=== PATIENT | male | born 1975 | race Caucasian/White ===

== ENCOUNTER 2017-06-15 20:43 | Emergency (ER) | payer BC, OTHER ==
[2017-06-15 20:50] VITALS: BP 150/105; PULSE 86; TEMP 98.5; BMI 35.2
--- NOTE | 2017-06-15 20:52 | PDOC ---
History of Present Illness - General History Source: Patient Exam Limitations: No Limitations (for removal) - History of Present Illness Initial Comments: 06/15/17 21:07 A portion of this note was documented by scribe services under my direction. I have reviewed the details of the note, within reason, and agree with the documentation. The case summary and management plan written by me. Assessment and plan: This is a 41-year-old male with a very superficial puncture wound to the plantar surface of his right foot, patient will be started on Keflex as he is ALLERGIC to fluoroscopy quinolones. However patient was told that the antibiotic may not cover all the organisms and if he develops any increased redness or pain in the area he should return to ER immediately or see his primary care doctor. <Myriam Negrete I - Last Filed: 06/15/17 21:07> - General History Source: Patient Exam Limitations: No Limitations - History of Present Illness Initial Comments: 06/15/17 21:10 The patient is a 41 year old male with no pertinent past medical history who presents to the ED after stepping on a nail that went through his shoe. The patient denies any pain to the area, any itchiness, bleeding, redness, or swelling. Denies any fevers or chills. He reports being unsure of when his last tetanus vaccine was. PAST MEDICAL HISTORY: no significant history PAST SURGICAL HISTORY: no significant history FAMILY HISTORY: no pertinent history SOCIAL HISTORY: Pt lives with family and is employed. MEDICATIONS: reviewed ALLERGIES: As per nursing notes General: No fevers or chills, no weakness, no weight loss HEENT: No change in vision. No sore throat,. No ear pain CardioVascular: No chest pain or shortness of breath Respiratory:No cough, or wheezing. Gastrointestinal: no nausea, vomiting, diarrhea or constipation, No rectal bleeding Genitourinary: No dysuria, hematuria, or frequency Musculoskeletal: No joint or muscle pain or swelling Neurologic: No headache, vertigo, dizziness or loss of consciousness Psychiatric: nor depression Skin: Present: cut on sole of foot Endocrine: no increased thirst or abnormal weight change Allergic: no skin or latex allergy All other systems reviewed and normal GENERAL: The patient is awake, alert, and fully oriented, in no acute distress. HEAD: Normal with no signs of trauma. EYES: Pupils equal, round and reactive to light, extraocular movements intact, sclera anicteric, conjunctiva clear. EXTREMITIES: Normal range of motion, no edema. NEUROLOGICAL: Normal speech, normal gait. PSYCH: Normal mood, normal affect. SKIN: small red area that appears to be superficial Puncture wound no bleeding, no penetration below the dermis Warm, Dry, normal turgor, no rashes. <virginiaYari slaas - Last Filed: 06/15/17 21:11> - General Chief Complaint: Injury Stated Complaint: STEPPED ON NAIL Time Seen by Provider: 06/15/17 20:50 Past History - Past Medical History Anemia: No Asthma: No Cancer: No Cardiac Disorders: No CVA: No COPD: No CHF: No Dementia: No Diabetes: No GI Disorders: Yes (RECTAL BLEEDING, ANAL FISSURE) Disorders: No HTN: Yes Hypercholesterolemia: Yes Liver Disease: No Seizures: No Thyroid Disease: No - Surgical History Abdominal Surgery: Yes (HEMORRHOID BANDING) Appendectomy: No Cardiac Surgery: No Cholecystectomy: Yes Lung Surgery: No Neurologic Surgery: No Orthopedic Surgery: No - Immunization History Immunization Up to Date: Yes - Suicide/Smoking/Psychosocial Hx Smoking Status: No Smoking History: Never smoked Have you smoked in the past 12 months: No Number of Cigarettes Smoked Daily: 0 If you are a former smoker, when did you quit?: 2002 Cigars Per Day: 0 Hx Alcohol Use: Yes (SOCIAL) Drug/Substance Use Hx: No Substance Use Type: None <Myriam Negrete I - Last Filed: 06/15/17 21:07> <[email or web address] - Last Filed: 06/15/17 21:11> - Past Medical History Allergies/Adverse Reactions: Allergies Allergy/AdvReac Type Severity Reaction Status Date / Time levofloxacin [From Levaquin] Allergy Mild aches Verified 10/31/15 19:54 Home Medications: Ambulatory Orders Duloxetine HCl [Cymbalta] 80 mg PO DAILY 10/31/15 Cephalexin [Keflex] 500 mg PO QID #28 capsule 06/15/17 *Physical Exam - Vital Signs Last Vital Signs Temp Pulse Resp BP Pulse Ox 98.5 F 86 16 150/105 98 06/15/17 20:47 06/15/17 20:47 06/15/17 20:47 06/15/17 20:47 06/15/17 20:47 <Myriam Negrete I - Last Filed: 06/15/17 21:07> - Vital Signs Last Vital Signs Temp Pulse Resp BP Pulse Ox 98.5 F 86 16 150/105 98 06/15/17 20:47 06/15/17 20:47 06/15/17 20:47 06/15/17 20:47 06/15/17 20:47 <Yari Rebolledo - Last Filed: 06/15/17 21:11> ED Treatment Course - Medications Given in the ED: ED Medications Discontinued Medications Generic Name Dose Route Start Last Admin Trade Name Erin PRN Reason Stop Dose Admin Cephalexin HCl 500 mg 06/15/17 21:05 06/15/17 21:07 Keflex - PO 06/15/17 21:06 500 mg ONCE ONE Administration <Yari Rebolledo - Last Filed: 06/15/17 21:11> *DC/Admit/Observation/Transfer - Discharge Dispostion Admit: No <Myriam Negrete I - Last Filed: 06/15/17 21:07> - Attestations Scribe Attestion: 06/15/17 21:11 Documentation prepared by Yari Rebolledo, acting as medical registrar for Myriam Negrete MD. <Yari Rebolledo - Last Filed: 06/15/17 21:11> Diagnosis at time of Disposition: Puncture wound of foot Qualifiers: Encounter type: initial encounter Laterality: right Qualified Code(s): S91.331A - Puncture wound without foreign body, right foot, initial encounter - Discharge Dispostion Disposition: HOME Condition at time of disposition: Stable - Prescriptions Prescriptions: Cephalexin [Keflex] 500 mg PO QID #28 capsule - Referrals Referrals: Yolis Haider [Primary Care Provider] - - Patient Instructions Additional Instructions: Take Keflex one tablet 4 times a day for 7 days to prevent infection. Review find that you start getting increased pain or redness return to the ER see her primary care doctor. Return to the emergency department immediately with ANY new, persistent or worsening symptoms. Continue any medications as previously prescribed by your physician. You should follow up with your primary doctor as soon as possible regarding today's emergency department visit. . Please make sure your doctor reviews the results of your emergency evaluation. Thank you for coming to the Emergency Department today for your care. It was a pleasure to see you today. Please note that your evaluation is INCOMPLETE until you follow-up with your doctor. - Post Discharge Activity
[2017-06-15] MEDS ORDERED: CEPHALEXIN MONOHYDRATE 500 MG CAPSULE (UD) PO ONE (21:05)
[2017-06-15] MEDS ORDERED: CEPHALEXIN MONOHYDRATE 500 MG CAPSULE (UD) ONE (21:07)
[2017-06-15] MEDS ORDERED: DIPHTH,PERTUSS(ACELL),TET 0.5 ML DISP.SYRIN IM ONE (21:10)
== END 2017-06-15 21:19 | disposition home or self-care (01) ==
LOC: FER 20:43
PROC: 3E0234Z Introduction of Serum, Toxoid and Vaccine into Muscle, Percutaneous Approach (ICD-10-PCS; principal; 2017-06-15)
DX: S91.331A Puncture wound without foreign body, right foot, initial encounter (principal); W22.8XXA Striking against or struck by other objects, initial encounter; Y93.89 Activity, other specified; Y92.9 Unspecified place or not applicable; Z87.891 Personal history of nicotine dependence; E78.00 Pure hypercholesterolemia, unspecified; I10 Essential (primary) hypertension
CPT/HCPCS: 90715; 99281-25

== ENCOUNTER 2017-08-02 18:16 | Emergency (ER) | payer BC, OTHER ==
[2017-08-02 18:49] VITALS: BP 135/79; PULSE 103; TEMP 99; BMI 35.2
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
== END 2017-08-02 19:37 | disposition home or self-care (01) ==
LOC: JERFT 18:16
DX: Z77.21 Contact with and (suspected) exposure to potentially hazardous body fluids (principal); X58.XXXA Exposure to other specified factors, initial encounter; Y93.89 Activity, other specified; Y92.9 Unspecified place or not applicable; Y99.0 Civilian activity done for income or pay; Z87.891 Personal history of nicotine dependence; I10 Essential (primary) hypertension; E78.00 Pure hypercholesterolemia, unspecified
CPT/HCPCS: 99281-25

== ENCOUNTER 2021-04-03 10:31 | Emergency (ER) | payer BC, OTHER ==
[2021-04-03 10:49] VITALS: BP 152/96; PULSE 95; TEMP 98.8; BMI 38.9
== END 2021-04-03 11:44 | disposition home or self-care (01) ==
LOC: FER 10:31
DX: L04.9 Acute lymphadenitis, unspecified (principal)
CPT/HCPCS: 36415; 81003; 87086; 87491; 87591; 99283-25